=== PATIENT | female | born 1985 | race Caucasian/White ===

== ENCOUNTER → 2018-05-28 10:47 | Outpatient (CLI) | payer OTHER, SELFPAY ==
[2018-06-04 11:58] LABS: HPV HC, High Risk Negative (Negative)
[2018-06-04 13:40] LABS: HPV Reflexed? NOT INDICATED
== END ==
PROVIDERS: Visit Provider Obstetrics & Gynecology
DX: Z12.4 Encounter for screening for malignant neoplasm of cervix (principal)
CPT/HCPCS: 88175; G0145